=== PATIENT | female | born 1985 | race Caucasian/White ===

== ENCOUNTER 2017-12-31 08:45 | Outpatient (RCR) | payer MEDICAID, SELFPAY ==
[2017-12-25 09:23] VITALS: BP 139/78; PULSE 68; RESP 16; TEMP 36.5; BMI 21.2
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
[2017-12-31 09:19] VITALS: BP 127/44; PULSE 68; RESP 18; TEMP 36.3; BMI 21.2
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
== END 2018-01-10 23:59 ==
LOC: WC 08:45
PROVIDERS: Family Provider Nurse Practitioner Family; PCP Nurse Practitioner Family; Visit Provider Internal Medicine
DX: S41.132A Puncture wound without foreign body of left upper arm, initial encounter (principal); S41.131A Puncture wound without foreign body of right upper arm, initial encounter; V19.9XXA Pedal cyclist (driver) (passenger) injured in unspecified traffic accident, initial encounter; F17.200 Nicotine dependence, unspecified, uncomplicated
CPT/HCPCS: 11042; 99202; G0463

== ENCOUNTER 2018-01-15 08:01 | Outpatient (RCR) | payer MEDICAID, SELFPAY ==
[2018-01-11 01:10] VITALS: BP 127/44; PULSE 68; RESP 18; TEMP 36.3
== END 2018-02-10 23:59 ==
LOC: WC 08:01
PROVIDERS: Family Provider Nurse Practitioner Family; PCP Nurse Practitioner Family; Visit Provider Internal Medicine
DX: Z09 Encounter for follow-up examination after completed treatment for conditions other than malignant neoplasm (principal)